=== PATIENT | female | born 1955 | race Caucasian/White ===

== ENCOUNTER 2021-08-22 13:38 | Outpatient (CLI) | payer MEDICARE, OTHER, SELFPAY ==
--- NOTE | ~2021-08-22 | CT_ITS ---
EXAMINATION: CT lung screening DATE: 08/22/2021 13:56 INDICATION: Personal history of nicotine dependence, current smoker with 40 pack year history TECHNIQUE: Computed tomography (CT) of the chest was performed without intravenous contrast. The dose -length product (DLP) was 87.23 mGy-cm. Automated exposure control and iterative reconstruction techn ique were employed. COMPARISON: None FINDINGS: There is moderate emphysema. Calcified nodules of the left upper lobe are consistent with o ld granulomatous disease. No suspicious noncalcified nodule is identified. The lungs are free of acut e opacities. There is no pleural effusion or pneumothorax. No pathologically enlarged thoracic lymph nodes are identified. The heart size is normal. Calcified coronary artery atherosclerosis is noted. S tones are present in the nondistended gallbladder. There is mild thoracic spondylosis. There is an ag e-indeterminate compression fracture of the T8 vertebral body. IMPRESSION: 1. Lung-RADS category 1: Negative. Continue annual screening with noncontrast low-dose chest CT in 12 months. Reviewed, dictated and finalized at location B. IMPRESSION: 1. Lung-RADS category 1: Negative. Continue annual screening with noncontrast l ow-dose chest CT in 12 months.
== END 2021-08-22 13:39 | disposition home or self-care (01) ==
PROVIDERS: PCP Student in an Organized Health Care Education/Training Program; Visit Provider Student in an Organized Health Care Education/Training Program
DX: F17.210 Nicotine dependence, cigarettes, uncomplicated (principal)
CPT/HCPCS: 71271

== ENCOUNTER 2021-12-12 09:33 | Outpatient (CLI) | payer MEDICARE, OTHER, SELFPAY ==
--- NOTE | ~2021-12-12 | MM_ITS ---
EXAMINATION: MM screening osvaldo BI w med HISTORY: Screening mammogram TECHNIQUE: Craniocaudal and mediolateral oblique 3-D tomosynthesis images were obtained and synthetic 2-D images were generated. CAD analysis was submitted and interpreted. COMPARISON: 01/30/2016 bilateral screening mammogram examination BREAST PARENCHYMAL COMPOSITION: There are scattered areas of fibroglandular density. FINDINGS: Occasional scattered bilateral benign calcifications. There is no evidence of suspicious ma ss, calcification, or architectural distortion to suggest malignancy in either breast. There has been no suspicious interval change. IMPRESSION: 1. No mammographic evidence of malignancy. 2. Recommend routine screening mammography in one year. BI-RADS Category 2: Benign finding(s). Reviewed, dictated and finalized at location A. D SERVICE TECHNICIAN POULTRY
== END 2021-12-12 09:34 | disposition home or self-care (01) ==
LOC: ANHIMG 09:35
PROVIDERS: PCP Student in an Organized Health Care Education/Training Program; Visit Provider Student in an Organized Health Care Education/Training Program
DX: Z12.31 Encounter for screening mammogram for malignant neoplasm of breast (principal)
CPT/HCPCS: 77063; 77067

== ENCOUNTER 2022-02-04 09:39 | Outpatient (CLI) | payer MEDICARE, OTHER, SELFPAY ==
--- NOTE | ~2022-02-04 | DEXA_ITS ---
Bone Density Report Name: KIANNA BURNS Age: 66 Sex: Female Ethnicity: White Date of : 1955 Indication: postmenopausal; screening for osteoporosis; parental hip fracture; height loss; prior fracture; Referring Provider: FLETCHER, JEFFERY Study: Bone densitometry was performed. Exam Date: February 04, 2022 Accession number: [id number] Bone Density: Region BMD T-score Z-score Classification AP Spine(L1-L4) 0.827 -2.0 -0.1 Osteopenia Femoral Neck (Left) 0.541 -2.8 -1.1 Osteoporosis Total Hip (Left) 0.741 -1.6 -0.3 Osteopenia Femoral Neck (Right) 0.662 -1.7 0.0 Osteopenia Total Hip (Right) 0.739 -1.7 -0.3 Osteopenia Total Hip Mean 0.740 -1.7 -0.3 Osteopenia World Health Organization criteria for BMD impression classify patients as: Normal (T-score at or above -1.0), Osteopenia (T-score between -1.0 and -2.5), or Osteoporosis (T-score at or below -2.5). 10-year Fracture Risk: FRAX not reported because: Some T-score for Spine Total or Hip Total or Femoral Neck at or below -2.5 Clinical Information Provided by Patient: Has had a low trauma fracture Parent has had a hip fracture Smokes Patient maximum height was 67.5 Menopause Age: 46 No regular weight bearing exercise Drinks caffeinated beverages Onset of menses at age 11 Number of children 0 Impression: The patient has established osteoporosis, based on the Left Femoral Neck T-score and the existence of a prior fracture. The patient has risk factors, including: parental hip fracture, smoking, previous fracture. Discussion: HIGH RISK OF FRACTURE. BONE DENSITY IS UNDESIRABLY LOW AT ONE OR MORE SKELETAL SITES, CONSISTENT WITH POSTMENOPAUSAL OSTEOPOROSIS. This patient's lowest T-score, in a patient who has previously fractured, meets the World Health Organization's (WHO) criteria for severe osteoporosis. In untreated patients, the risk of osteoporotic fracture increases approximately two-fold for each 1.0 SD decrease in T-score. Low bone density is not the only risk factor for fracture; also consider factors such as patient's age, frailty or poor health, risk of falling, risk of injury, previous osteoporotic fracture, family history of osteoporosis, cigarette smoking, low body weight, etc. Not everyone with low bone mineral density has osteoporosis; osteomalacia and other metabolic bone disorders should also be considered. Patients who have osteoporosis should be evaluated for specific diseases and conditions (secondary causes) that may cause or contribute to bone loss. The [place] Association of Clinical Endocrinologists (AACE) and National Osteoporosis Foundation (NOF) recommend pharmacologic intervention for all postmenopausal women whose T-score is in this range. The patient should follow a healthful lifestyle (good nutrition with adequate
== END 2022-02-04 09:40 | disposition home or self-care (01) ==
PROVIDERS: PCP Student in an Organized Health Care Education/Training Program; Visit Provider Student in an Organized Health Care Education/Training Program
DX: N95.8 Other specified menopausal and perimenopausal disorders (principal); Z78.0 Asymptomatic menopausal state; M85.88 Other specified disorders of bone density and structure, other site; M81.0 Age-related osteoporosis without current pathological fracture; M85.852 Other specified disorders of bone density and structure, left thigh; M85.851 Other specified disorders of bone density and structure, right thigh
CPT/HCPCS: 77080

== ENCOUNTER 2022-09-16 12:47 | Outpatient (CLI) | payer MEDICARE, OTHER, SELFPAY ==
--- NOTE | ~2022-09-16 | CT_ITS ---
EXAMINATION: CT lung screening DATE: 09/16/2022 13:10 INDICATION: Nicotine dependence. TECHNIQUE: Computed tomography (CT) of the chest was performed without intravenous contrast. The dose -length product was 95.01 mGy-cm. Automated exposure control and iterative reconstruction technique w ere employed. COMPARISON: CT dated 08/22/2021 FINDINGS: No thoracic lymphadenopathy. Heart size normal. No significant pleural or pericardial effus ion. There are calcified granulomas in the left upper lung. There are gallstones. There is emphysema. No endobronchial lesions. No focal airspace consolidation. No pneumothorax. There are a few 1-2 mm u pper lobe nodules, likely benign. There is a chronic superior endplate compression fracture of T8. No focal lytic or sclerotic lesions. IMPRESSION: 1. Lung-RADS category 2: Benign appearance or behavior. Continue annual screening with noncontrast lo w-dose chest CT in 12 months. Reviewed, dictated and finalized at location A. ICAL EDUCATION SPECIALIST IMPRESSION: 1. Lung-RADS category 2: Benign appearance or behavior. Continue annual screeni ng with noncontrast low-dose chest CT in 12 months.
== END 2022-09-16 12:48 | disposition home or self-care (01) ==
PROVIDERS: PCP Student in an Organized Health Care Education/Training Program; Visit Provider Student in an Organized Health Care Education/Training Program
DX: Z12.2 Encounter for screening for malignant neoplasm of respiratory organs (principal); F17.210 Nicotine dependence, cigarettes, uncomplicated
CPT/HCPCS: 71271

== ENCOUNTER 2022-12-15 10:21 | Outpatient (CLI) | payer MEDICARE, OTHER, SELFPAY ==
--- NOTE | ~2022-12-15 | MM_ITS ---
EXAMINATION: MM screening osvaldo BI w med HISTORY: Screening mammogram TECHNIQUE: Craniocaudal and mediolateral oblique 3-D tomosynthesis images were obtained and synthetic 2-D images were generated. CAD analysis was submitted and interpreted. COMPARISON: December 12, 2021, January 30, 2016 bilateral screening mammogram examinations BREAST PARENCHYMAL COMPOSITION: The breasts are heterogeneously dense, which may obscure small masses FINDINGS: Occasional bilateral benign calcifications. There is no evidence of suspicious mass, calcif ication, or architectural distortion to suggest malignancy in either breast. There has been no suspic ious interval change. IMPRESSION: 1. No mammographic evidence of malignancy. 2. Recommend routine screening mammography in one year. BI-RADS Category 2: Benign finding(s). Reviewed, dictated and finalized at location A. SURG NURSE
== END 2022-12-15 10:22 | disposition home or self-care (01) ==
LOC: ANHIMG 10:22
PROVIDERS: PCP Student in an Organized Health Care Education/Training Program; Visit Provider Student in an Organized Health Care Education/Training Program
DX: Z12.31 Encounter for screening mammogram for malignant neoplasm of breast (principal)
CPT/HCPCS: 77063; 77067

== ENCOUNTER 2023-11-21 09:05 | Outpatient (CLI) | payer MEDICARE, OTHER, SELFPAY ==
--- NOTE | ~2023-11-21 | CT_ITS ---
EXAMINATION:CT lung screening DATE: 11/21/2023 09:28 INDICATION: Nicotine dependence, cigarettes. Current smoker with 40 pack year history. TECHNIQUE: Computed tomography (CT) of the chest was performed without intravenous contrast. Automate d exposure control and iterative reconstruction technique were employed. The dose-length product (DLP ) was 81.44 mGy-cm. COMPARISON: Chest CT 09/16/2022 FINDINGS: There is moderate emphysema. There is a 2 mm nodule in right upper lobe. Calcified left solo g nodules and calcified left hilar lymph nodes are consistent with old granulomatous disease. There i s no pleural effusion. The heart size is normal. There are coronary artery calcifications. No pericar dial effusion. There are gallstones in the gallbladder, which is normal in size. There is a chronic c ompression fracture of T8. There is mild thoracic spondylosis. IMPRESSION: 1. Lung-RADS category 2: Benign appearance or behavior. Continue annual screening with noncontrast lo w-dose chest CT in 12 months. Reviewed, dictated and finalized at location E. TELE IMPRESSION: 1. Lung-RADS category 2: Benign appearance or behavior. Continue annual screeni ng with noncontrast low-dose chest CT in 12 months.
== END 2023-11-21 09:06 | disposition home or self-care (01) ==
LOC: ANHIMG 09:08
PROVIDERS: PCP Student in an Organized Health Care Education/Training Program; Visit Provider Student in an Organized Health Care Education/Training Program
DX: Z12.2 Encounter for screening for malignant neoplasm of respiratory organs (principal); F17.210 Nicotine dependence, cigarettes, uncomplicated
CPT/HCPCS: 71271

== ENCOUNTER 2023-12-30 16:07 | Outpatient (CLI) | payer MEDICARE, OTHER, SELFPAY ==
--- NOTE | ~2023-12-30 | MM_ITS ---
EXAMINATION: MM screening osvaldo BI w med HISTORY: Screening mammogram TECHNIQUE: Craniocaudal and mediolateral oblique 3-D tomosynthesis images were obtained and synthetic 2-D images were generated. CAD analysis was submitted and interpreted. COMPARISON: December 15, 2022, December 12, 2021 bilateral screening mammogram examinations BREAST PARENCHYMAL COMPOSITION: The breasts are heterogeneously dense, which may obscure small masses . FINDINGS: There are scattered occasional bilateral benign calcifications are again present. He is a p atient and There is no evidence of suspicious mass, calcification, or architectural distortion to sug gest malignancy in either breast. There has been no suspicious interval change. IMPRESSION: 1. No mammographic evidence of malignancy. 2. Recommend routine screening mammography in one year. BI-RADS Category 2: Benign finding(s). Reviewed, dictated and finalized at location A.
== END 2023-12-30 16:08 | disposition home or self-care (01) ==
LOC: ANHIMG 16:18
PROVIDERS: PCP Student in an Organized Health Care Education/Training Program; Visit Provider Student in an Organized Health Care Education/Training Program
DX: Z12.31 Encounter for screening mammogram for malignant neoplasm of breast (principal)
CPT/HCPCS: 77063; 77067

== ENCOUNTER 2024-02-10 12:53 | Outpatient (CLI) | payer MEDICARE, OTHER, SELFPAY ==
--- NOTE | ~2024-02-10 | DEXA_ITS ---
Bone Density Report Name: KIANNA BURNS Age: 68 Sex: Female Ethnicity: White Date of : 1955 Indication: osteopenia; parental hip fracture; height loss; Referring Provider: FLETCHER, JEFFERY Study: Bone densitometry was performed. Exam Date: February 10, 2024 Accession number: [id number] Bone Density: Region BMD T-score Z-score Classification AP Spine(L1-L4) 0.822 -2.0 0.0 Osteopenia Femoral Neck (Left) 0.575 -2.5 -0.7 Osteoporosis Total Hip (Left) 0.685 -2.1 -0.6 Osteopenia Femoral Neck (Right) 0.584 -2.4 -0.6 Osteopenia Total Hip (Right) 0.710 -1.9 -0.4 Osteopenia Total Hip Mean 0.697 -2.0 -0.5 Osteopenia World Health Organization criteria for BMD impression classify patients as: Normal (T-score at or above -1.0), Osteopenia (T-score between -1.0 and -2.5), or Osteoporosis (T-score at or below -2.5). 10-year Fracture Risk: FRAX not reported because: Some T-score for Spine Total or Hip Total or Femoral Neck at or below -2.5 Previous Exams: Region Exam Age BMD T-score BMD Change BMD Change Date g/cm2 vs Baseline vs Previous AP Spine (L1-L4) 02/10/2024 68 0.822 -2.0 -0.005 (-0.6%) -0.005 (-0.6%) 02/04/2022 66 0.827 -2.0 Total Hip(Left) 02/10/2024 68 0.685 -2.1 -0.056 (-7.6%) -0.056 (-7.6%) 02/04/2022 66 0.741 -1.6 Total Hip(Right) 02/10/2024 68 0.710 -1.9 -0.030 (-4.0%) -0.030 (-4.0%) 02/04/2022 66 0.739 -1.7 *Denotes significance at 95% confidence level, LSC for AP Spine = 0.022 g/cm2, LSC for Total Hip = 0.027 g/cm2 Clinical Information Provided by Patient: Parent has had a hip fracture Smokes Has used the following medications: Vitamin D Patient maximum height was 67.5 Menopause Age: 46 No regular weight bearing exercise Drinks caffeinated beverages Onset of menses at age 11 Number of children 0 Impression: The patient has osteoporosis, based on the Left Femoral Neck T-score. The patient has risk factors, including: parental hip fracture, smoking. The BMD for the Total Hip(Left) decreased, changing by -7.6% since the last DXA exam. The BMD for the Total Hip(Right) decreased, changing by -4.0% since the last DXA exam. Discussion: INCREASED RISK OF FRACTURE. BONE DENSITY IS UNDESIRABLY LOW AT ONE OR MORE SKELETAL SITES, CONSISTENT WITH POSTMENOPAUSAL OSTEOPOROSIS. This patient's lowest T-score meets the World Health Organization's (WHO) criteria for osteoporosis at one or more sites (T-score -2.5
== END 2024-02-10 12:54 | disposition home or self-care (01) ==
LOC: ANHIMG 12:55
PROVIDERS: PCP Student in an Organized Health Care Education/Training Program; Visit Provider Student in an Organized Health Care Education/Training Program
DX: M81.0 Age-related osteoporosis without current pathological fracture (principal); M85.88 Other specified disorders of bone density and structure, other site; M85.852 Other specified disorders of bone density and structure, left thigh; M85.851 Other specified disorders of bone density and structure, right thigh
CPT/HCPCS: 77080

== ENCOUNTER 2024-12-09 10:04 | Outpatient (CLI) | payer MEDICARE, OTHER, SELFPAY ==
--- NOTE | ~2024-12-09 | CT_ITS ---
CT Scan of the Chest without Contrast: Clinical Indication: Lung cancer screening, nicotine dependence Technique: Contiguous sections were acquired throughout the chest without intravenous contrast. Dose reduction technique was used on this scan by utilizing automated exposure control and iterative recon struction technique. The dose-length product (DLP) was 74.41 mGy-cm. COMPARISON: 11/21/2023 Findings: There is no evidence of any significant mediastinal, hilar or axillary lymphadenopathy. The mediastin al soft tissues appear normal. There is no evidence of pleural or pericardial effusion. There is moderate to advanced emphysema. Calcified left upper lobe granulomas present. Images through the upper abdomen reveal calcified gallstones. Stable mild T8 compression deformity. Impression: Lung RADS 2: Benign appearance. 12 month follow-up screening CT advised. Moderate to advanced emphysema. Reviewed, dictated and finalized at [facility]. UTER AIDE Impression: Lung RADS 2: Benign appearance. 12 month follow-up screening CT advised. Moderate to advanced emphysema.
--- OUTSIDE RECORDS SUMMARY | 2024-12-09 10:44 | XMS_ITS | Clinical Summary ---
Author Organization [facility] Address [address], [facility] [address] [place] [address] Phone Care Team Providers Care Sheet Metal Smith Name Role Phone Nivia Simonchaamanda Dumont DO Primary Care Provider + Lars Ware MD Unavailable [phone] Allergies Active Allergy Reactions Criticality Noted Date Comments Gadolinium Derivatives Unknown 11/02/2023 Iodine Hives 12/02/2019 MRI contrast Ioversol Hives 12/02/2019 Medications Jardiance 25 MG Tablet 09/21/2023 Active Aspirin Low Dose 81 MG Tablet Delayed Response 09/21/2023 Ac tive ibuprofen (MOTRIN) 600 MG Tablet 09/21/2023 Active Vitamin D3 1000 UNIT Tablet Take 1,000 Units by mouth. 08/26/2022 Active diphenhydrAMINE HCl 50 MG Tablet Take 50 mg by mouth. 09/21/2023 Active rosuvastatin (CRESTOR) 5 MG Tablet Take 5 mg by mouth. 03/17/2024 Active SITagliptin-metF ORMIN (Janumet) 50-500 MG Tablet Take 1 Tablet by mouth. 09/21/2024 Active Active Problems Problem Noted Date Diagnosed Date Polycythemia 12/10/2023 Encounters Date Type Department Care Team Description 10/07/2024 11:45 AM VIDEO EDITING INTERNSHIP Office Visit [facility] [address] [phone] June Black, CASUALTY CLAIMS SUPERVISOR, SPINDLE FRAME CARVER Polycythemia (Primary Dx) 10/07/2024 11:40 AM VIDEO EDITING INTERNSHIP Lab [facility] [address] [phone] Lab, [facility] Polycythemia 10/07/2024 Travel from Last 3 Months Family History Medical History Relation Name Comments Chronic Obstructive Pulmonary Disease Father Cancer Maternal Grandmother Arthritis Mother Diabetes Mother Elevated Lipids Mother Heart Disease Mother Hypertension Mother Hypothyroidism Mother Relation Name Status Comments Father Maternal Grandmother Mother Social History Tobacco Use Types Packs/Day Years Used Date Smoking Tobacco: Every Day Cigarettes Smokeless Tobacco: Never Tobacco Cessation:Ready to Q uit: Yes; Counseling Given: Yes Alcohol Use Standard Drinks/Week Comments Yes 0 (1 standard drink = 0.6 oz pur e alcohol) Comments Unknown Sex and Gender Information Value Date Recorded Sex Assigned at Not on file Legal Sex Female 3:15 PM VIDEO EDITING INTERNSHIP Gender Identity Not on file Sexual Orientation Not on file Last Filed Vital Signs Vital Sign Reading Time Taken Comments Blood Pressure 112/72 10/07/2024 11:53 AM VIDEO EDITING INTERNSHIP Pulse 74 10/07/2024 11:53 AM VIDEO EDITING INTERNSHIP Temperature 36.4 C (97.5 F) 10/07/2024 11:53 AM VIDEO EDITING INTERNSHIP Respiratory Rate 18 10/07/2024 11:5 3 AM VIDEO EDITING INTERNSHIP Oxygen Saturation 97% 10/07/2024 11: 53 AM VIDEO EDITING INTERNSHIP Inhaled Oxygen Concentration - - Weight 64.4 kg (141 lb 14.4 oz) 024 11:53 AM VIDEO EDITING INTERNSHIP Height 170.2 cm (5' 7 ) 10/07/2024 11:5 3 AM VIDEO EDITING INTERNSHIP Body Mass Index 22.22 10/07/2024 11:53 AM VIDEO EDITING INTERNSHIP Plan of Treatment Upcoming Encounters Date Type Department Care Team (Late st Contact Info) Description 01/06/2025 11:40 AM CDT Lab [facility] [address] [phone] Lab, [facility] 01/06/2025 11:45 AM CDT Office Visit [facility] [address] [phone] Lars Ware MD [address] [place] [id number] Health Maintenance Due Date Last Done Comments DEXA Bone Density 1955 Cologuard 2004 Immunochemical Fecal Occult Blood 2004 Respiratory Syncytial Virus (RSV) Immunization (Adult) (1 - Risk 60-74 years 1-dose series) 2014 Mammogram 12/12/2023 12/12/2021 SARS-COV-2 Immunization ( season) 2025 08/23/2024, 11/11/2023, 06/23/2023, Additional history exists Colonoscopy 02/26/2026 02/27/2016 Colorectal Cancer Screening 02/26/2026 02/27/2016 DTaP/Tdap/Td Immunization Discontinued 2019, 10/22/2019, 08/07/2015 TdaP Immunization Completed 10/24/2019, , 08/07/2015 Zoster Immunization Completed 02/21/2020, 12/21/2019, 07/14/2017 Pneumococcal Immunization (50+ years) Completed 08/09/2021, 12/02/2019, 07/20/2018 Hepatitis C Virus (HCV) Screening Completed 08/20/2022, 05/10/2013 Influenza Immunization Completed , 06/23/2023, 07/11/2022, Additional history exists Hepatitis B Immunization Aged Out No longer eligible based on patient's age to complete this topic Meningococcal Immunization (ACWY) Aged Out No longer eligible based on patient's age to complete this topic Rotavirus Immunization Aged Out No lo nger eligible based on patient's age to complete this topic Procedures Procedure Name Priority Date/Time Associated Diagnosis Comments CBC WITH AUTO DIFF OH Routine 10/07/2024 11:31 AM VIDEO EDITING INTERNSHIP from Last 3 Months Results * (ABNORMAL) CBC WITH AUTO DIFF OH (10/07/2024 11:31 AM VIDEO EDITING INTERNSHIP) WBC 6.0 4.0 - 10.0 10*3/uL [facility] DEHYDROGENATION [facility] HGB 17.4(H) 11.2 - 15.7 g/dL [facility] DEHYDROGENATION [facility] HCT 52.2(H) 34.1 - 44.9 % [facility] DEHYDROGENATION O[facility]ATOR [facility] PLT 264 163 - 369 10*3/uL [facility]HYDROGENATION [facility] MPV 8.9(L) 9.4 - 12.4 fL [facility] DEHYDROGENATION OPERATOR [facility] RBC 5.73(H) 3.93 - 5.22 10*6/uL [facility] DEHYDROGENATION OPERATOR [facility] MCV 91 79 - 95 fL CANCER DEHYDROGENATION OPERATOR [facility] MCH 30.4 25.6 - 32.2 pg [facility]HYDROGENATION [facility] MCHC 33.3 32.2 - 36.5 g/dL [facility] DEHYDROGENATION O[facility]ATOR [facility] RDW 12.8 11.6 - 14.4 % [facility]HYDROGENATION [facility] Neutrophils % 50.6 36.0 - 66.0 % [facility]HYDROGENATION [facility] Lymphocytes % 32.4 19.0 - 40.0 % [facility]HYDROGENATION [facility] Monocytes % 11.5 4.1 - 12.1 % [facility]HYDROGENATION [facility] Eosinophils % 4.3(H) 0.0 - 3.5 % [facility] DEHYDROGENATION O[facility]ATOR [facility] Basophils % 1.0 0.0 - 1.0 % [facility] DEHYDROGENATION O[facility] Absolute Neutrophils 3.0 1.4 - 6.6 10*3/uL [facility] DEHYDROGENATION [facility] Absolute Lymphocytes 1.9 0.8 - 4.0 10*3/uL [facility] DEHYDROGENATION O[facility] Absolute Monocytes 0.7 0.2 - 1.2 10*3/uL [facility] DEHYDROGENATION O[facility]ATOR [facility] Absolute Eosinophils 0.3 0.0 - 0.4 10*3/uL [facility] DEHYDROGENATION O[facility] Absolute Basophils 0.1 0.0 - 0.1 10*3/uL [facility] DEHYDROGENATION [facility] 10/07/2024 11:3 1 AM VIDEO EDITING INTERNSHIP us Bettye Moya APRN, SPINDLE FRAME CARVER LAB SEND OUTS Final Result [facility]DROGEN[facility] [place] [address], from Last 3 Months Insurance MEDICARE [facility] Care Teams Sheet Metal Smith Relationship Specialty Start Date End Date Ravi Simon DO [address] [place] [id number] PCP - General Family Medicine 11/11/23 Lars Ware MD [address] [place] [phone] Consulting Physician Oncology 11/11/23
--- OUTSIDE RECORDS SUMMARY | 2024-12-09 10:44 | XMS_ITS | Continuity of Care Document ---
Author Organization [facility] Address [address] [facility] [address] [place] [address] Phone Care Team Providers Care Milk Delivery Driver Name Role Phone Unavailable Unavailable Unavailable Advance Directives Directive Yes / No Effective Date File Name No Information Encounters Encounter Description Practice Location Reason(s) For Visit Diagnoses Date Provider Providers Copied on Encounter [facility], [address] [place], [place], [id number], [place] tel:[phone] [address] No Information 200 0 No Information Family History Family Member Type Diagnosis Age At Onset No Information Payers Payer name Insurance type Covered libertarian ID Authoriza tion(s) No Information Social History Type Description Quantity Date Captured Comments Sex Female Smoking Status No Information Chief Complaint And Reason For Visit No Information Reason For Referral Reason For Referral No Information History Of Present Illness Encounter Date Complaint History Of Prese nt Illness No Information Functional Status Date Functional Assessmen t No Information Instructions Date Instruction Additional Infor mation No Information Assessments Type Assessment Date No Information Patient Care Teams Name Effective Dates (start - stop) Status Members No Information
--- OUTSIDE RECORDS SUMMARY | 2024-12-09 10:44 | XMS_ITS | Encounter Summary ---
Author Organization [facility] Address [address] [place] [address] Care Team Providers Care Cat Wagon Operator Name Role Phone Ravi Simon DO Primary Care Provider + Encounter Details Date Type Department Care Team (Late st Contact Info) Description 12/31/2023 MyChart Message Enc [facility] Family & Internal [facility] [address] [place] [address] Ravi Simon DO [address] [place], [place] [phone] Mammogram Results Social History Tobacco Use Types Packs/Day Years Used Date Smoking Tobacco: Every Day Cigarettes 1 40 Passive Smoke Exposure: Past Smokeless Tobacco: Never Comments:provider to crisis counselor Alcohol Use Standard Drinks/Week Comments Never 0 (1 standard drink = 0.6 oz pur e alcohol) AUDIT-C Answer Date Recorded Frequency of Alcohol Consumption Never 12/02/2019 Average Number of Drinks Not on file 020 Frequency of Binge Drinking Not on file 11/19 PHQ-2 Answer Date Recorded Patient Health Questionnaire-2 Score 2 11/02/2023 Comments No Sex and Gender Information Value Date Recorded Sex Assigned at Female 11/23/2024 10:02 AM LUSTERER Legal Sex Female 8:13 PM CDT Gender Identity Female 11/23/2024 10:02 AM LUSTERER Sexual Orientation Straight 11/23/2024 10 :02 AM LUSTERER documented as of this encounter Plan of Treatment Upcoming Encounters Date Type Department Care Team (Late st Contact Info) Description 05/24/2025 10:20 AM CDT Office Visit [facility] Family & Internal Medicine - [place] [id number] [place] [address] Ravi Simon DO [address] [place] [phone] documented as of this encounter Visit Diagnoses Not on filedocumented in this encounter Additional Health Concerns Assessment Noted Time PHQ-9 Depression Total Score: 0 08/28/20 21 10:17 AM LUSTERER documented as of this encounter Care Teams Cat Wagon Operator Relationship Specialty Start Date End Date Ravi Simon DO [address] [place] [phone] PCP - General FAMILY PRACTICE 12/02/19 documented as of this encounter
--- OUTSIDE RECORDS SUMMARY | 2024-12-09 10:44 | XMS_ITS | Clinical Summary ---
Author Organization [facility] Address Formerly [facility] [place] [address] Care Team Providers Care Down Filler Name Role Phone Ravi Simon Tim [facility] Primary Care Provider + Allergies Active Allergy Reactions Criticality Noted Date Comments Gadolinium Derivatives Unknown 11/02/2023 Iodine Hives 12/02/2019 MRI contrast Ioversol Hives 12/02/2019 Medications Blood Glucose Monitoring Suppl (FREESTYLE LITE) DeviceIndications: Type 2 diabetes mellitus without complication, without long-term current use of insulin ([facility]) Test once daily 1 Device 0 Active vitamin D3, cholecalciferol, (VITAMIN D) 1000 UNIT Tab tabletIndications: Age-related osteoporosis without current pathological fracture,Vitamin D deficiency Take 1 tablet (1,000 Units total) by mouth daily. 90 tablet 3 2 Active Multiple Vitamins-Minerals (MULTIVITAMIN ADULTS 50+ OR) Take 1 tablet by mouth daily. Active empagliflozin (JARDIANCE) 25 MG tabletIndications: Type 2 diabetes mellitus without complication, without long-term current use of insulin ([facility]) Take 1 tablet (25 mg total) by mouth daily. 90 tablet 1 4 Active ibuprofen (MOTRIN) 600 MG tabletIndications: Plantar fasciitis Take 1 tablet (600 mg total) by mouth 3 (three) times daily as needed for Pain. 270 tablet 1 4 Active diphenhydrAMINE (BENADRYL) 50 MG tabletIndications: Anxiety Take 1 tablet (50 mg total) by mouth nightly. 90 tablet 1 4 Active aspirin EC 81 MG tabletIndications: Hyperlipidemia, unspecified hyperlipidemia type Take 1 tablet (81 mg total) by mouth daily. 90 tablet 1 4 Active SITagliptin-metFOR MIN HCl (JANUMET) 50-500 MG TabIndications:Unc ontrolled type 2 diabetes mellitus with hyperglycemia ([facility]) Take 1 tablet by mouth 2 (two) times a day. 180 tablet 1 4 Active rosuvastatin (CRESTOR) 5 MG tabletIndications: Hyperlipidemia, unspecified hyperlipidemia type Take 1 tablet (5 mg total) by mouth nightly at bedtime. 90 tablet 1 4 Active Glucose Blood (FREESTYLE LITE) test stripIndications:T ype 2 diabetes mellitus without complication, without long-term current use of insulin ([facility]) 1 strip by Other route daily. Use as instructed 100 strip 1 4 Active Alcohol Swabs (ALCOHOL PREP) 70 % PadsIndications:Ty pe 2 diabetes mellitus without complication, without long-term current use of insulin ([facility]) Use daily as directed 100 each 1 4 Active Lancets (FREESTYLE) lancetsIndications :Type 2 diabetes mellitus without complication, without long-term current use of insulin ([facility]) 1 each by Other route daily. Use as instructed 100 each 1 4 Active Active Problems Problem Noted Date Diagnosed Date Elevated hemoglobin 11/23/2024 Polycythemia 12/10/2023 Pulmonary emphysema, unspeci fied emphysema type ([facility]) 08/11/2021 Plantar fasciitis 12/02/2019 Vitamin D deficiency 12/02/2019 Nicotine dependence, cigarettes, uncomplicated 0 12/02/2019 Anxiety 12/02/2019 Pure hypercholesterolemia 03/04/2014 Overview (12/02/2019): PURE HYPERCHOLESTEROLEM Hyperlipidemia associated wi th type 2 diabetes mellitus ([facility]) 07/11/2013 Type 2 diabetes mellitus wit hout complications ([facility]) 07/11/2013 Overview (12/02/2019): DMII WO CMP UNCNTRLD Abnormal levels of other serum enzymes 3 Resolved Problems Problem Noted Date Diagnosed Date Resolved Date 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 The patient had labs completed last week. ) 11/23/2024 Travel 11/16/2024 10:20 AM PLATFORM ATTENDANT Laboratory Only [facility] Internal [address] [address] Ravi Simon DO 11/16/2024 Travel 10/07/2024 Scan HEALTH INFO SRVCS Scanned, [facility] from Last 3 Months Immunizations Name Administration Dates Next Due Afluria 36 MONTHS+ (Prefille d Syringe IIV4) 07/16/2019 Fluzone High Dose (IIV, triv alent, 0.5mL) 08/16/2024 Fluzone High Dose - >Age 65 (Prefilled Syringe) 06/23/2023,07/11/2022,07/02/2021 Influenza Adult (Generic) 07/25/2020,,08/13/2018,2016,07/25/2016,08/07/2015,08/25/2014 PFIZER COVID-19 (PACE CAP), MRNA, LNP-S, PF, 30 MCG/0.3 ML JUANCARLOS-SUCROSE, IM 02/25/2022 PFIZER COVID-19 (ORIGINAL FORMULATION, PURPLE CAP) mRNA, LNP-S, PF, 30 MCG/0.3 ML DOSE 07/13/2021,12/15/2020,11/17/2020 Pneumococcal (Pneumovax 23) 08/09/2021 Pneumococcal (Prevnar 13) 12/02/2019,07/20/2018 Shingrix 02/21/2020,12/21/2019 Tdap (Adacel) 10/24/2019,10/22/2019 Tdap (Generic) 10/22/2019,08/07/2015 Zoster (Zostavax) [address] Unt/0.65Ml 07/14/2017 Family History Medical History Relation Comments Cancer Maternal Grandmother oral Arthritis Mother Diabetes Mother Heart Disease Mother Hyperlipidemia Mother Hypertension Mother hypothyroidism Mother Relation Status Comments Father Maternal Grandmother Mother Social History Tobacco Use Types Packs/Day Years Used Date Smoking Tobacco: Every Day Cigarettes 1 40 Passive Smoke Exposure: Past Smokeless Tobacco: Never Tobacco Cessation:Ready to Q uit: No; Counseling Given: Yes Comments:provider to certified alcohol and drug counselor Alcohol Use Standard Drinks/Week Comments Never 0 (1 standard drink = 0.6 oz pur e alcohol) AUDIT-C Answer Date Recorded Frequency of Alcohol Consumption Never 12/02/2019 Average Number of Drinks Not on file 020 Frequency of Binge Drinking Not on file 11/19 PHQ-2 Answer Date Recorded Patient Health Questionnaire-2 Score 0 11/23/2024 Comments No Sex and Gender Information Value Date Recorded Sex Assigned at Female 11/23/2024 10:02 AM PLATFORM ATTENDANT Legal Sex Female 8:13 PM CDT Gender Identity Female 11/23/2024 10:02 AM PLATFORM ATTENDANT Sexual Orientation Straight 11/23/2024 10 :02 AM PLATFORM ATTENDANT Last Filed Vital Signs Vital Sign Reading Time Taken Comments Blood Pressure 120/84 11/23/2024 9:48 AM PLATFORM ATTENDANT Pulse 81 11/23/2024 9:48 AM PLATFORM ATTENDANT Temperature 36.2 C (97.2 F) 11/23/2024 9:48 AM PLATFORM ATTENDANT Respiratory Rate 16 11/23/2024 9:48 AM PLATFORM ATTENDANT Oxygen Saturation 98% 11/23/2024 9:48 AM PLATFORM ATTENDANT Inhaled Oxygen Concentration - - Weight 64.2 kg (141 lb 9.6 oz) 11/23/2024 9:48 A M PLATFORM ATTENDANT Height 168.9 cm (5' 6.5 ) 11/23/2024 9:48 AM PLATFORM ATTENDANT Body Mass Index 22.51 11/23/2024 9:48 AM PLATFORM ATTENDANT Plan of Treatment Upcoming Encounters Date Type Department Care Team (Late st Contact Info) Description 05/24/2025 10:20 AM CDT Office Visit [facility] Family & Internal Medicine - [id number] [place] [address] Ravi Simon, [address] [place] [id number] Health Maintenance Due Date Last Done Comments Annual Medicare Wellness Visit 08/29/2022 08/28/2021 Mammogram Screening 12/29/2024 12/30/2023, 12/15/2022, 12/12/2021, Additional history exists Hemoglobin A1C 05/23/2025 11/23/2024, 07/20, 05/09/2024, Additional history exists Kidney Health Evaluation 11/16/2025 11/16/2024 Lipid Panel 11/16/2025 11/16/2024, 05/2024, 08/20/2022, Additional history exists RSV Immunization or 60+ Years (1 - Risk 60-74 years 1-dose series) 11/23/2025 Postponed fro m 2014 (Patient Refused) Diabetes: Retinopathy Eye Exam 02/01/2026 02/02/2024, 12/22/2022, 12/19/2021, Additional history exists Dexa Scan (General) 02/09/2026 02/10/2024, 02/04/2022, 08/27/2018, Additional history exists Colorectal Cancer Screening Colonoscopy (10 Years) 02/26/2026 02/27/2016 DTaP, Tdap and Td Vaccines (5 - Td or Tdap) 10/24/2029 10/24/2019, 10/22/2019, 10/22/2019, Additional history exists Zoster Vaccines Completed 02/21/2020, 01/2020, 07/14/2017 Pneumococcal Vaccine: 65+ Years Completed 08/09/2021, 12/02/2019, 07/20/2018 Hepatitis C Completed 08/20/2022, 05/10/2013 Influenza Adult Completed 08/16/2024, 090 02/2023, 07/11/2022, Additional history exists COVID-19 Vaccine Completed 08/23/2024, , 06/23/2023, Additional history exists PHQ-2 (Physician [place]) Completed 11/23/2024 Meningococcal B Vaccine Aged Out No l onger eligible based on patient's age to complete this topic Meningococcal Vaccine Aged Out No skylar marita eligible based on patient's age to complete this topic RSV Immunizations Under 20 Months Aged Out No longer eligible based on patient's age to complete this topic Procedures Procedure Name Priority Date/Time Associated Diagnosis Comments COLLECT.CAPILLARY (FNGR,HEEL,EAR) Routine 11/23/2024 9:40 AM PLATFORM ATTENDANT Type 2 diabetes mellitus with hyperglycemia, without long-term current use of insulin ([facility]) HEMOGLOBIN, GLYCOSYLATED Routine 11/23/2024 Type 2 diabetes mellitus with hyperglycemia, without long-term current use of insulin ([facility]) COLLECTION VENOUS BLOOD VENIPUNCTURE Routine 11/16/2024 11:01 AM PLATFORM ATTENDANT Numbness of left foot Type 2 diabetes mellitus without complication, without long-term current use of insulin ([facility]) Hyperlipidemia, unspecified hyperlipidemia type Age-related osteoporosis without current pathological fracture VITAMIN D, 25 OH Routine 11/16/2024 11:0 1 AM PLATFORM ATTENDANT Type 2 diabetes mellitus without complication, without long-term current use of insulin ([facility]) Hyperlipidemia, unspecified hyperlipidemia type Age-related osteoporosis without current pathological fracture ALBUMIN URINE RANDOM W/CREATININE Routine 11/16/2024 11:01 AM PLATFORM ATTENDANT Type 2 diabetes mellitus without complication, without long-term current use of insulin ([facility]) Hyperlipidemia, unspecified hyperlipidemia type Age-related osteoporosis without current pathological fracture CBC W/DIFF AUTOMATED Routine 11/16/2024 11:01 AM PLATFORM ATTENDANT Type 2 diabetes mellitus without complication, without long-term current use of insulin ([facility]) Hyperlipidemia, unspecified hyperlipidemia type Age-related osteoporosis without current pathological fracture COMPREHENSIVE METABOLIC PANEL Routine 11/16/2024 11:01 AM PLATFORM ATTENDANT Type 2 diabetes mellitus without complication, without long-term current use of insulin ([facility] HHS/HCC) Hyperlipidemia, unspecified hyperlipidemia type Age-related osteoporosis without current pathological fracture TSH W/REFLEX Routine 11/16/2024 11:01 AM PLATFORM ATTENDANT Type 2 diabetes mellitus without complication, without long-term current use of insulin ([facility] HHS/HCC) Hyperlipidemia, unspecified hyperlipidemia type Age-related osteoporosis without current pathological fracture LIPID PANEL Routine 11/16/2024 11:01 AM PLATFORM ATTENDANT Type 2 diabetes mellitus without complication, without long-term current use of insulin ([facility]/HCC) Hyperlipidemia, unspecified hyperlipidemia type Age-related osteoporosis without current pathological fracture VITAMIN B-12 Routine 11/16/2024 11:01 AM PLATFORM ATTENDANT Numbness of left foot BONE DENSITY GENERIC (SCAN ORDER) 02/10/2024 DIABETIC RETINOPATHY EXAM (NEGATIVE)(SCAN ORDER) Routine 02/02/2024 MAMMOGRAM GENERIC (SCAN ORDER) 12/30/2023 HEPATITIS C ANTIBODY W/RFX TO HCV RNA Routine 08/20/2022 7:40 AM CDT COLONOSCOPY GENERIC (SCAN ORDER) Routine 02/27/2016 12:00 AM CDT from Last 3 Months or Most Recently Relevant to Health Maintenance Results * HEMOGLOBIN, GLYCOSYLATED (11/23/2024) HGB A1C 6.9 % [facility] 11/23/2024 us Ravi Simon DO LABORATORY Final Re sult [facility] [address] [place] [address], * TSH W/REFLEX (11/16/2024 11:01 AM PLATFORM ATTENDANT) TSH 1.190 0.358 - 3.740 uIU/ML 11/17/2024 10:47 AM PLATFORM ATTENDANT [facility] 11/16/2024 11:0 1 AM PLATFORM ATTENDANT Ravi Simon DO LABORATORY Final Re sult Performing Organization Address City/[facility]/ZIP Co de Phone Number [facility] [address] [place] [address], [place] [phone] * VITAMIN B-12 (11/16/2024 11:01 AM PLATFORM ATTENDANT) VITAMIN B12 S/P/B 441 193 - 986 PG/ML 11/17/2024 10:47 AM PLATFORM ATTENDANT [facility] 11/16/2024 11:0 1 AM PLATFORM ATTENDANT Ravi Simon DO LABORATORY Final Re sult Performing Organization Address [facility] Co de Phone Number [place] [place] [address], [place] [phone] * ALBUMIN URINE RANDOM W/CREATININE (11/16/2024 11:01 AM PLATFORM ATTENDANT) MICROALBUMIN (U) 4.1 <20 MG/L 11/17/19 9:23 AM PLATFORM ATTENDANT [facility] CREATININE RANDOM (U) 39.2 MG/DL 11/17/2024 9:23 AM PLATFORM ATTENDANT [facility] ALBUMIN/CREAT RATIO 10.5 <30 MG/G 11/17/2024 9:23 AM PLATFORM ATTENDANT [facility] URINE SPECIMEN / Unknown 11/16/2024 11:01 AM PLATFORM ATTENDANT us Ravi Simon DO URINE ORDERABLES Final R esult Performing Organization Address City/[facility]/ZIP Co de Phone Number [facility] [address] [place] [address], [place] [phone] * (ABNORMAL) COMPREHENSIVE METABOLIC PANEL (11/16/2024 11:01 AM PLATFORM ATTENDANT) [facility] SODIUM S/P/B 140 136 - 145 MMOL/L 11/17/2024 10:53 AM [facility] POTASSIUM S/P/B 4.7 3.5 - 5.1 MMOL/L 11/17/2024 10:53 AM [facility] CHLORIDE S/P/B 101 98 - 107 MMOL/L 11/17/2024 10:53 AM [facility] CO2 28.4 21 - 32 MMOL/L 11/17/2024 10:53 AM [facility] GLUCOSE 132(H) 70 - 99 MG/DL 11/17/2024 10:47 AM [facility] BUN 13 7 - 18 MG/DL 11/17/2024 10:47 AM [facility] CREATININE S/P/B 0.77 0.55 - 1.02 MG/DL 11/17/2024 10:47 AM [facility] CALCIUM S/P/B 9.8 8.4 - 10.5 MG/DL 11/17/2024 10:47 AM [facility] BILIRUBIN TOTAL S/P/B 0.4 0.2 - 1.0 MG/DL 11/17/2024 10:47 AM [facility] ALKALINE PHOSPHATASE S/P/B 135 55 - 142 U/L 11/17/2024 10:47 AM [facility] AST 13(L) 15 - 37 U/L 11/17/2024 10:47 AM [facility] ALT 15 14 - 59 U/L 11/17/2024 10:47 AM [facility] TOTAL PROTEIN S/P/B 7.3 6.4 - 8.2 G/DL 11/17/2024 10:47 AM [facility] [place] ALBUMIN S/P/B 4.1 3.4 - 5.0 G/DL 11/17/2024 10:47 AM PLATFORM ATTENDANT [facility] [place] ANION GAP 10.6 5 - 15 MMOL/L 11/17/2024 10:53 AM PLATFORM ATTENDANT [facility] [place] Comment:REFERENCE RANGE NOT ESTABLISHED OSMOLALITY (CALC) 292 MOSM/KG 025 10:53 AM PLATFORM ATTENDANT [facility] [place] Comment:REFERENCE RANGE NOT ESTABLISHED GFR ESTIMATE 83(L) >90 ML/MIN/1. 73 M2 11/17/2024 10:47 AM PLATFORM ATTENDANT [facility] [place] GFR NOTES GFR REFERENCE S: 11/17/2024 10:47 AM [facility], [place] Comment: THE ESTIMATED GFR IS CALCULATED USING THE 2020 CKD-EPI EQUATION. THE FOLLOWING CATEGORIES FOR GRADING RENAL FUNCTION ARE RECOMMENDED BY THE INTERNATIONAL SOCIETY OF NEPHROLOGY (KDIGO 2012 CLINICAL PRACTICE GUIDELINE). G1,NORMAL OR HIGH: >89 ml/min/1.73 m2 G2,MILDLY DECREASED: 60-89 ml/min/1.73 m2 G3A,MILDLY TO MODERATELY DECREASED: 45-59 ml/min/1.73 m2 G3B,MODERATELY TO SEVERELY DECREASED: 30-44 ml/min/1.73 m2 G4,SEVERELY DECREASED: 15-29 ml/min/1.73 m2 G5,KIDNEY FAILURE: <15 ml/min/1.73 m2 11/16/2024 11:0 1 AM PLATFORM ATTENDANT us Ravi Simon DO LABORATORY Final Re sult [facility] [place] [address] [place] [address], * (ABNORMAL) LIPID PANEL (11/16/2024 11:01 AM PLATFORM ATTENDANT) CHOLESTEROL 150 <200 MG/DL 11/17/2024 10:47 AM PLATFORM ATTENDANT [facility] [place] TRIGLYCERIDES 147 <150 MG/DL 11/17/2024 10:47 AM PLATFORM ATTENDANT [facility] HDL 60 >40 MG/DL 11/17/2024 10:47 AM PLATFORM ATTENDANT [facility] LDL-C 61 <100 MG/DL 11/17/2024 10:47 AM PLATFORM ATTENDANT [facility] VLDL CALCULATION 29(H) 5 - 28 MG/DL 11/17/2024 10:47 AM PLATFORM ATTENDANT [facility] CHOL/HDL RATIO 2.5 0.0 - 4.0 11/17/2024 10:47 AM PLATFORM ATTENDANT [facility] LDL/HDL 1.0 0.41 - 2.13 11/17/2024 10:47 AM PLATFORM ATTENDANT [facility] NON HDL CHOLESTEROL 90 <140 MG/DL 11/17/2024 10:47 AM PLATFORM ATTENDANT [facility] 11/16/2024 11:0 1 AM PLATFORM ATTENDANT us Ravi Simon DO LABORATORY Final Re sult [facility] [address] [place] [address], * (ABNORMAL) CBC W/DIFF AUTOMATED (11/16/2024 11:01 AM PLATFORM ATTENDANT) WBC 7.62 4.00 - 10.80 x10'3/uL 11/16/2024 7:59 PM PLATFORM ATTENDANT [facility] RBC 5.88(H) 4.10 - 5.40 x10'6/uL 11/16/2024 7:59 PM [facility] HGB 17.5(H) 12.0 - 16.0 G/DL 11/16/2024 7:59 PM [facility] HCT 53.3(H) 36.0 - 47.0 % 11/16/2024 7:59 PM [facility] MCV 90.6 78.0 - 100.0 FL 11/16/2024 7:59 PM [facility] MCH 29.8 27.0 - 31.0 PG 11/16/2024 7:59 PM [facility] MCHC 32.8(L) 33.0 - 36.0 G/DL 11/16/2024 7:59 PM [facility] RDW 12.2 11.5 - 14.5 % 11/16/2024 7:59 PM [facility] PLT 365(H) 150 - 350 x10'3/uL 11/16/2024 7:59 PM [facility] MPV 9.6 7.4 - 10.4 FL 11/16/2024 7:59 PM [facility] DIFFERENTIAL TYPE AUTOMATED DIFFERENTIAL 11/16/2024 7:59 PM [facility] NEUTROPHILS % 54.3 % 11/16/2024 7:59 PM [facility] LYMPHOCYTES % 29.4 % 11/16/2024 7:59 PM [facility] MONOCYTES % 11.7 % 11/16/2024 7:59 PM [facility] EOSINOPHILS % 3.8 % 11/16/2024 7:59 PM [facility] BASOPHILS % 0.7 % 11/16/2024 7:59 PM [facility] IMMATURE GRANS % 0.1 % 11/16/2024 7:59 PM [facility] ABS. NEUTROPHILS 4.14 1.60 - 8.30 x10'3/uL 11/16/2024 7:59 PM [facility] ABS. LYMPHOCYTES 2.24 0.80 - 4.70 x10'3/uL 11/16/2024 7:59 PM [facility] ABS. MONOCYTES 0.89 0.00 - 1.50 x10'3/uL 11/16/2024 7:59 PM PLATFORM ATTENDANT [facility] ABS. EOSINOPHILS 0.29 0.00 - 0.40 x10'3/uL 11/16/2024 7:59 PM PLATFORM ATTENDANT [facility] ABS. BASOPHILS 0.05 0.00 - 0.20 x10'3/uL 11/16/2024 7:59 PM PLATFORM ATTENDANT [facility] ABS. IMMATURE GRANULOCYTES 0.01 0.00 - 0.03 x10'3/uL 11/16/2024 7:59 PM PLATFORM ATTENDANT [facility] 11/16/2024 11:0 1 AM PLATFORM ATTENDANT Ravi Simon DO LABORATORY Final Re sult Performing Organization Address City/[facility]/ZIP Co de Phone Number [address] [address], * VITAMIN D, 25 OH (11/16/2024 11:01 AM PLATFORM ATTENDANT) VITAMIN D 25 HYDROXY TOTAL S/P/B 47.9 30 - 100 NG/ML 11/17/2024 10:47 AM PLATFORM ATTENDANT [facility] Comment: DEFICIENT <20 INSUFFICIENT 20-30 SUFFICIENT 30-100 11/16/2024 11:0 1 AM PLATFORM ATTENDANT Ravi Simon DO LABORATORY Final Re sult Performing Organization Address City/[facility]/ZIP Co de Phone Number [facility] [address] [place] [address], * BONE DENSITY GENERIC (SCAN ORDER) (02/10/2024) Anatomical Region Laterality Modality Other 02/10/2024 us [facility] Scanned SCANNING Final Resu lt * DIABETIC RETINOPATHY EXAM (NEGATIVE) (02/02/2024) us [facility] Scanned SCANNING Final Resu lt Performing Organization Address City/[facility]/ZIP Co de Phone Number [facility] ONBASE * MAMMOGRAM GENERIC (SCAN ORDER) (12/30/2023) Anatomical Region Laterality Modality Other 12/30/2023 us [facility] Scanned SCANNING Final Resu lt * HEPATITIS C ANTIBODY W/RFX TO HCV RNA (08/20/2022 7:40 AM CDT) HEPATITIS C AB NON-REACTI VE NON-REACT RAE [facility] SIGNAL TO CUTOFF 0.01 <[address] [facility] Comment: HCV antibody was non-reactive. There is no laboratory evidence of HCV infection. In most cases, no further action is required. However, if recent HCV exposure is suspected, a test for HCV RNA (test code 89844) is suggested. For additional information please refer to http://education.[employer]/faq/JOA00u2 (This link is being provided for informational/ educational purposes only.) 08/20/2022 7:40 AM CDT 08/20/2022 7:42 AM CDT Narrative [facility] - 08/25/2022 10:11 PM PLATFORM ATTENDANT FASTING:YES FASTING: YES us Ravi Simon DO LABORATORY Final Re sult [facility] [address] [place] [id number] * COLONOSCOPY (02/27/2016 12:00 AM CDT) 02/27/2016 us Documents Scanned SCANNING Final Result Performing Organization Address City/[facility]/ZIP Co de Phone Number [facility] from Last 3 Months or Most Recently Relevant to Health Maintenance [place] [address] MEDICARE [facility] Care Teams Down Filler Relationship Specialty Start Date End Date Ravi Simon DO [address] [place] [phone] PCP - General FAMILY PRACTICE 12/02/19
--- OUTSIDE RECORDS SUMMARY | 2024-12-09 10:44 | XMS_ITS | Patient Health Summary ---
Author Organization [facility] Address [address] [place] [address] Care Team Providers Care Anode Rebuilder Name Role Phone Jennifer Ríos MD Primary Care Provider [phone] [facility],non-owned Affiliates and Associated Physician Practices is amultiple site organization consisting of ambulatory clinics and hospital sitesin [place], [place], [place] and [place]. This disclosure is being madepursuant to the Care Everywhere program and may not contain all information available regarding this patient. Last updated 18.[facility] Active Problems Problem Noted Date Diagnosed Date Hyperlipidemia 07/11/2013 Essential (primary) hypertension 07/11/2013 Encounter for screening for malignant neoplasm o f colon 07/11/2013 Type 2 diabetes mellitus without complications 0 07/11/2013 Abnormal levels of other serum enzymes 3 Social History Tobacco Use Types Packs/Day Years Used Date Smoking Tobacco: Every Day Smokeless Tobacco: Never Alcohol Use Standard Drinks/Week Comments No 0 (1 standard drink = 0.6 oz pur e alcohol) Sex and Gender Information Value Date Recorded Sex Assigned at Not on file Gender Identity Not on file Sexual Orientation Not on file Last Filed Vital Signs Vital Sign Reading Time Taken Comments Blood Pressure 111/89 07/11/2013 9:58 AM CDT Pulse 93 07/11/2013 9:58 AM CDT Temperature 37.2 C (98.9 F) 07/11/2013 9:58 AM CDT Respiratory Rate 20 07/11/2013 9:58 AM CDT Oxygen Saturation - - Inhaled Oxygen Concentration - - Weight 89.9 kg (198 lb 3.2 oz) 07/11/2013 9:58 A M CDT Height 170.2 cm (5' 7 ) 07/11/2013 9:58 AM CDT Body Mass Index 31.04 07/11/2013 9:58 AM CDT Procedures * MITOCHONDRIAL ANTIBODY SCREEN(Performed 07/11/2013) * COMPREHENSIVE METABOLIC PANEL(Performed 07/11/2013) * NUCLEOTIDASE 5-(Performed 05/10/2013) * HEPATITIS A ANTIBODY(Performed 05/10/2013) * SMOOTH MUSCLE ANTIBODY(Performed 05/10/2013) * MITOCHONDRIAL ANTIBODY SCREEN(Performed 05/10/2013) * SHILPA BLOOD SCREEN(Performed 05/10/2013) * FERRITIN(Performed 05/10/2013) * HEPATITIS C ANTIBODY(Performed 05/10/2013) * HEPATITIS B SURFACE ANTIGEN W RFLX CONFIRMATION(Performed 05/10/2013) * HEPATITIS B SURFACE ANTIBODY(Performed 05/10/2013) * HEPATITIS B CORE ANTIBODY TOTAL(Performed 05/10/2013) * [id number]-[id number] BLOOD(Performed 05/10/2013) * GGT(Performed 05/10/2013) * COMPREHENSIVE METABOLIC PANEL(Performed 05/10/2013) * CBC W AUTO DIFFERENTIAL(Performed 05/10/2013) Results * MITOCHONDRIAL ANTIBODY SCREEN (07/11/2013 12:55 PM CDT) Only the most recent of2 resultswithin the time period is included. Pathologist [facility] Mitochondrial M2 Antibody 5.0 0.0 - 20 UNITS [facility] Comment: Interpretation/Reference Range Negative: < 20.1 Units Equivocal: 20.1 - 24.9 Units Positive: > 24.9 Units 07/11/2013 12:5 5 PM CDT 07/11/2013 1:36 PM CDT Bill Shore MD LAB - CHEMISTRY [facility]RIS [facility]ENN[facility] [address] [phone] * (ABNORMAL) COMPREHENSIVE METABOLIC PANEL (07/11/2013 12:55 PM CDT) Only the most recent of2 resultswithin the time period is included. Pathologist [facility] BUN 11 7 - 26 mg/dL [facility] Creatinine 0.7 0.6 - 1.2 mg/dL [facility] eGFR by MDRD > 60 ML/MIN [facility] Comment: Chronic kidney disease: <60 ml/min Kidney failure: <15 ml/min Based on BSA of 1.73m2. Sodium 139 136 - 145 mmol/L [facility] Potassium 4.0 3.5 - 4.5 mmol/L [facility] Chloride 101 98 - 107 mmol/L [facility] CO2 27 22 - 29 mmol/L [facility] Glucose 121(H) 70 - 115 mg/dL [facility] Calcium 9.8 8.4 - 10.2 mg/dL [facility] Protein Total 7.6 6.0 - 8.3 g/dL [facility] Albumin 4.2 3.4 - 5.0 g/dL [facility] Bilirubin Total 0.5 0.2 - 1.2 mg/dL [facility] Alkaline Phosphatase 155(H) 40 - 150 Units/L [facility] ALT 30 0 - 55 Units/L [facility] AST 22 5 - 34 Units/L [facility] Anion Gap 15 8 - 18 [facility] BUN/Creatinine Ratio 15 7 - 23 [facility] Osmolality Calculation 273 270 - 300 mOsm/kg [facility] Albumin/Globulin Ratio 1.2 1.1 - 2.3 [facility] 07/11/2013 12:5 5 PM CDT 07/11/2013 1:36 PM CDT Bill Shore MD LAB - CHEMISTRY [facility]RIS [facility]ENN[facility] Performing Organization Address City/[facility]/ZIP Co de Phone Number [address] [phone] * SHILPA BLOOD SCREEN (05/10/2013 5:05 PM CDT) SHILPA NONE DETECTED NONE DETECT [facility] 05/10/2013 5:05 PM CDT 05/10/2013 5:20 PM CDT Bill Shore MD LAB - CHEMISTRY [facility]RIS [facility]ENN[facility] Performing Organization Address City/[facility]/ZIP Co de Phone Number [address] [phone] * NUCLEOTIDASE 5- (05/10/2013 5:05 PM CDT) 5' Nucleotidase 5 0 - 10 IU/L [facility] Comment: Performed at: - Lab[address] [id number] Joiner Apprentice: David Pascual MD, Phone: [phone] 05/10/2013 5:05 PM CDT 05/10/2013 5:20 PM CDT iBll Shore MD LAB - CHEMISTRY [facility] Performing Organization Address City/[facility]/[place] [address], [facility] [phone] * CNOWO-4-[id number] BLOOD (05/10/2013 5:05 PM CDT) Hwlng-1-Cnihjh ypsin 144.6 90 - 200 mg/dL [facility] 05/10/2013 5:05 PM CDT 05/10/2013 5:20 PM CDT Bill Shore MD LAB - CHEMISTRY [facility]RIS [facility]ENN[facility] Performing Organization Address [facility] [place] [address], [facility] [phone] * SMOOTH MUSCLE ANTIBODY (05/10/2013 5:05 PM CDT) Actin Antibody IgG 5.4 0.0 - 19.9 UNITS [facility] Comment: Interpretation/Reference Range Negative: < 20.0 Units Weak Positive: 20.0 - 30.0 Units Moderate to Strong Positive: > 30.0 Units 05/10/2013 5:05 PM CDT 05/10/2013 5:20 PM CDT Bill Shore MD LAB - SEROLOGY ORDER CITLALY Performing Organization Address City/[facility]/[place] [address], [facility] [phone] * (ABNORMAL) CBC W AUTO DIFFERENTIAL (05/10/2013 5:05 PM CDT) WBC 10.0 3.5 - 10.5 10^3/uL [facility] RBC 5.11(H) 3.90 - 5.00 10^6/uL [facility] Hemoglobin 15.1 12.0 - 15.5 g/dL [facility] Hematocrit 44.9 35.0 - 45.0 % [facility] MCV 87.9 81.0 - 97.0 FL [facility] MCH 29.5 28.0 - 34.0 PG [facility] MCHC 33.6 32.0 - 36.0 G/DL [facility] Platelet 323 150 - 400 10^3/uL [facility] RDW 13.3 11.2 - 14.8 % [facility] RDW-SD 43.1 36 - 50 FL [facility] MPV 9.3 9.3 - 12.8 FL [facility] Neutrophils % 48.3 35.0 - 70.0 % [facility] Lymphocytes % 40.0 19.7 - 55.1 % [facility] Monocytes % 8.2 3 - 15 % [facility] Eosinophils % 2.9 0.0 - 6.0 % [facility] Basophils % 0.6 0.0 - 1.5 % [facility] Neutrophils Absolute 4.8 1.7 - 7.0 10^3/uL [facility] Lymphocyte Absolute 4.0(H) 0.8 - 2.9 10^3/uL [facility] Monocytes Absolute 0.8(H) 0.14 - 0.66 10^3/uL [facility] Eosinophils Absolute 0.29(H) 0.00 - 0.22 10^3/uL [facility] Basophils Absolute 0.06 0.02 - 0.06 10^3/uL [facility] Differential Type AUTO DIFFERENTIAL [facility] 05/10/2013 5:05 PM CDT 05/10/2013 5:20 PM CDT Bill Shore MD LAB - HEMATOLOGY ORD ERABLES [facility] [address] [phone] * HEPATITIS B SURFACE ANTIBODY (05/10/2013 5:05 PM CDT) Hepatitis B Surface Antibody Quantitative 0.10 <8.00 mIU/mL [facility] Hepatitis B Virus Surface Antibody NONREACTIVE NONREACTIVE [facility] Comment: < 8 mIU/mL anti-HBs. Nonreactive for anti-HBs and individual is considered not immune to HBV infection. 05/10/2013 5:05 PM CDT 05/10/2013 5:20 PM CDT Bill Shore MD LAB - CHEMISTRY [facility]ENN[facility] Performing Organization Address [facility]/ZIP Co de Phone Number [address] [phone] * HEPATITIS B CORE ANTIBODY (05/10/2013 5:05 PM CDT) Hepatitis B Core Virus Antibody Total NONREACTIVE NONREACTIVE [facility] 05/10/2013 5:05 PM CDT 05/10/2013 5:20 PM CDT Bill Shore MD LAB - CHEMISTRY [facility]RIS [facility]ENN[facility] Performing Organization Address [facility] Co de Phone Number [address] [phone] * HEPATITIS B SURFACE ANTIGEN W RFLX CONFIRMATION (05/10/2013 5:05 PM CDT) Hepatitis B Virus Surface Antigen NONREACTIVE NONREACTIVE [facility] 05/10/2013 5:05 PM CDT 05/10/2013 5:20 PM CDT Bill Shore MD LAB - CHEMISTRY [facility]RIS [facility]ENNING Performing Organization Address [facility]/ZIP Co de Phone Number [address] [phone] * GGT (05/10/2013 5:05 PM CDT) GGT 32 9 - 64 Units/L [facility] 05/10/2013 5:05 PM CDT 05/10/2013 5:20 PM CDT Bill Shore MD LAB - CHEMISTRY [facility]RIS [facility]ENNING Performing Organization Address City/[facility]/ZIP Co de Phone Number [address] [phone] * HEPATITIS C ANTIBODY (05/10/2013 5:05 PM CDT) [facility] Hepatitis C Antibody NONREACTIVE NONREACTIVE [facility] Comment: Anti-HCV screen indicates no serologic evidence of past or current infection with Hepatitis C Virus. Patients with unexplained liver disease who are immunocompromised or suspected of having acute Hepatitis C infection may benefit from Nucleic Acid Test (YVONNE) for Hepatitis C Viral RNA to confirm Hepatitis C status. 05/10/2013 5:05 PM CDT 05/10/2013 5:20 PM CDT Bill Shore MD LAB - CHEMISTRY [facility]RIS [facility]ENN[facility] Performing Organization Address [facility]/ZIP Co de Phone Number [address] [phone] * HEPATITIS A ANTIBODY (05/10/2013 5:05 PM CDT) [facility] Hepatitis A Virus Total Antibody Negative Negative [facility] Comment: Performed at: - Lab[address] [id number] Joiner Apprentice: Reagan Wyatt PhD, Phone: [phone] 05/10/2013 5:05 PM CDT 05/10/2013 5:20 PM CDT Bill Shore MD LAB - CHEMISTRY [place] [address], [facility] [phone] * FERRITIN (05/10/2013 5:05 PM CDT) [facility] Ferritin 96 13 - 204 ng/mL [facility] 05/10/2013 5:05 PM CDT 05/10/2013 5:20 PM CDT Bill Shore MD LAB - CHEMISTRY CHRIS HENNING [address] [phone] Care Teams Anode Rebuilder Relationship Specialty Start Date End Date Jennifer Ríos MD PCP - General 09/20/19
--- OUTSIDE RECORDS SUMMARY | 2024-12-09 10:44 | XMS_ITS | Encounter Summary ---
Author Organization [facility] Address [facility] [place] [address] Care Team Providers Care Compliance Intern Name Role Phone Ravi Simon Primary Care Provider + Encounter Details Date Type Department Care Team (Late st Contact Info) Description 04/15/2023 MyChart Message Enc [facility] - [facility] [address] [place], [place] [address] [employer], [facility] Provider Air Quality Message Social History Tobacco Use Types Packs/Day Years Used Date Smoking Tobacco: Every Day Cigarettes 1 40 Passive Smoke Exposure: Past Smokeless Tobacco: Never 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 Alcohol Use Standard Drinks/Week Comments Never 0 (1 standard drink = 0.6 oz pur e alcohol) AUDIT-C Answer Date Recorded Frequency of Alcohol Consumption Never 12/02/2019 Average Number of Drinks Not on file 020 Frequency of Binge Drinking Not on file 11/19 PHQ-2 Answer Date Recorded Patient Health Questionnaire-2 Score 0 11/26/2022 Comments No Sex and Gender Information Value Date Recorded Sex Assigned at Female 11/23/2024 10:02 AM MEDIA ASSISTANT Legal Sex Female 8:13 PM CDT Gender Identity Female 11/23/2024 10:02 AM MEDIA ASSISTANT Sexual Orientation Straight 11/23/2024 10 :02 AM MEDIA ASSISTANT COVID-19 Exposure Response Date Recorded In the last 10 days, have yo u been in contact with someone who was confirmed or suspected to have Coronavirus/COVID-19? No / Unsure 04/01/2023 11:24 AM CDT documented as of this encounter Plan of Treatment Upcoming Encounters Date Type Department Care Team (Late st Contact Info) Description 05/24/2025 10:20 AM CDT Office Visit [facility] [place] [address] [place] [address] [place] [address] [place] [id number] documented as of this encounter Visit Diagnoses Not on filedocumented in this encounter Additional Health Concerns Assessment Noted Time PHQ-9 Depression Total Score: 0 08/28/20 21 10:17 AM MEDIA ASSISTANT documented as of this encounter Care Teams Compliance Intern Relationship Specialty Start Date End Date Ravi Simon DO [address] [place] [id number] PCP - General FAMILY PRACTICE 12/02/19 documented as of this encounter
--- OUTSIDE RECORDS SUMMARY | 2024-12-09 10:44 | XMS_ITS | Clinical Summary ---
Author Organization [facility] Address [address] [place] [address] Care Team Providers Care Machine Attendant Name Role Phone Jennifer Ríos MD Primary Care Provider [phone] [facility],non-owned Affiliates and Associated Physician Practices is amultiple site organization consisting of ambulatory clinics and hospital sitesin [place], [place], [place] and [place]. This disclosure is being madepursuant to the Care Everywhere program and may not contain all information available regarding this patient. Last updated 18.[facility] [email or web address] Active Problems Problem Noted Date Diagnosed Date Hyperlipidemia 07/11/2013 Essential (primary) hypertension 07/11/2013 Encounter for screening for malignant neoplasm o f colon 07/11/2013 Overview (01/18/2018): January 2005 Colonoscopy normal Type 2 diabetes mellitus without complications 0 07/11/2013 Abnormal levels of other serum enzymes 3 Family History Medical History Relation Name Comments None Known Brother Status: Alive COPD - Chronic Obstructive Pulmonary Disease Father Status: Heart Disease Mother Hypertension Mother Status: d None Known Sister Status: Alive Relation Name Status Comments Brother Father Mother Sister Social History Tobacco Use Types Packs/Day Years [...] Mass Index 31.04 07/11/2013 9:58 AM CDT Plan of Treatment Health Maintenance Due Date Last Done Comments BONE DENSITY TESTING 1955 COLOGUARD (AGES 45-75) - COL ON CA SCREENING 1954 COLON MONITORING 1954 COLONOSCOPY - COLON CA SCREENING 1954 CT COLONOGRAPHY - COLON CA SCREENING 1954 Colorectal Cancer Screening 1954 FIT - COLON CA SCREENING 1954 FLEX SIG - COLON CA SCREENING 1954 LIPID TESTING 1954 MAMMOGRAM 1954 DTAP/TDAP/TD VACCINES (1 - Tdap) 1973 PNEUMOCOCCAL VACCINE 50+ (1 of 2 - PCV) 1973 ZOSTER VACCINE (1 of 2) 2004 COVID-19 VACCINE ( - 2023-2 5 season) 2024 INFLUENZA VACCINE (#1) 2024 DEPRESSION SCREENING 10/19/2024 Respiratory Syncytial Virus (RSV) Vaccine Pt: or over 60 yrs (1 - 1-dose 75+ series) 2029 HEPATITIS C SCREENING Completed 05/10/2013 HEPATITIS B VACCINE Aged Out No longe r eligible based on patient's age to complete this topic HIB VACCINE Aged Out No longer eligi ble based on patient's age to complete this topic HPV VACCINE Aged Out No longer eligi ble based on patient's age to complete this topic MENINGOCOCCAL (Group B) VACCINE Aged Out No longer eligible based on patient's age to complete this topic MENINGOCOCCAL VACCINE Aged Out No skylar marita eligible based on patient's age to complete this topic Procedures Procedure Name Priority Date/Time Associated Diagnosis Comments HEPATITIS C ANTIBODY Routine 05/10/2013 5:05 PM CDT from Last 3 Months or Most Recently Relevant to Health Maintenance Results * HEPATITIS C ANTIBODY (05/10/2013 5:05 PM CDT) Hepatitis C Antibody NONREACTIVE NONREACTIVE [facility] Comment: Anti-HCV screen indicates no serologic [...] Shore MD LAB - CHEMISTRY CHRIS HENNING [facility] Organization Address City/State/ZIP Co de Phone Number [facility] [address] [phone] from Last 3 Months or Most Recently Relevant to Health Maintenance Care Teams Machine Attendant Relationship Specialty Start Date End Date Jennifer Ríos MD PCP - General 09/20/19
--- OUTSIDE RECORDS SUMMARY | 2024-12-09 10:44 | XMS_ITS | Referral Summary ---
Author Organization [facility] Address [address] [place] [address] Care Team Providers Care Street Light Servicer Supervisor Name Role Phone Jennifer Ríos MD Primary Care Provider [phone] Source Comments [facility],non-owned Affiliates and Associated Physician Practices is amultiple site organization consisting of ambulatory clinics and hospital sitesin [place], [place], [place] and [place]. This disclosure is being madepursuant to the Care Everywhere program and may not contain all information available regarding this patient. Last updated 18.[facility] Active Problems Problem Noted Date Diagnosed Date [...] 07/11/2013 9:58 AM CDT Plan of Treatment Not on file Procedures Procedure Name Priority Date/Time Associated Diagnosis Comments HEPATITIS C ANTIBODY Routine 05/10/2013 5:05 PM CDT from Last 3 Months or Most Recently Relevant to Health Maintenance Results * HEPATITIS C ANTIBODY (05/10/2013 5:05 PM CDT) Hepatitis C Antibody NONREACTIVE NONREACTIVE [facility] Comment: Anti-HCV screen indicates no serologic [...] Shore MD LAB - CHEMISTRY CHRIS HENNING [facility] Organization Address City/State/ZIP Co de Phone Number [address] [phone] from Last 3 Months or Most Recently Relevant to Health Maintenance Care Teams Street Light Servicer Supervisor Relationship Specialty Start Date End Date Jennifer Ríos MD PCP - General 09/20/19
== END 2024-12-09 10:05 | disposition home or self-care (01) ==
PROVIDERS: PCP Student in an Organized Health Care Education/Training Program; Visit Provider Student in an Organized Health Care Education/Training Program
DX: Z12.2 Encounter for screening for malignant neoplasm of respiratory organs (principal); F17.210 Nicotine dependence, cigarettes, uncomplicated
CPT/HCPCS: 71271